=== PATIENT | female | born 1990 | race Two or more races ===

== ENCOUNTER 2020-08-29 22:23 | Emergency (ER) | payer MEDICAID, OTHER ==
[~2020-08-29] VITALS: Ht 160 cm; Wt 52.2 kg
[2020-08-29 22:48] VITALS: BP 115/49
== END 2020-08-30 00:51 | disposition home or self-care (01) ==
LOC: ER 22:23
DX: S86.912A Strain of unspecified muscle(s) and tendon(s) at lower leg level, left leg, initial encounter (principal); W22.8XXA Striking against or struck by other objects, initial encounter; Y93.89 Activity, other specified; Y92.89 Other specified places as the place of occurrence of the external cause; Y99.8 Other external cause status
CPT/HCPCS: 73560